=== PATIENT | female | born 1980 | race Caucasian/White ===

== ENCOUNTER 2017-01-25 13:15 | Inpatient (IN) ==
--- NOTE | 2017-01-25 11:20 | OB/GYN History & Physical ---
Date of Encounter: 01/25/17 Time of Encounter: 11:18 Assessment and Plan (1) 36 weeks gestation of Current visit: Yes Status: Acute NST performed in office today - Twin A reactive and positioned OA - Twin B nonreactive with BPP 6/8 positioned transverse Admit to labor and delivery for possible induction of labor vs. section - last meal at 0800 today NPO IV fluids Placed on TOCO Spinal or epidural anesthesia offered for pain PIH orders initiated for elevated blood pressure reading here 146/102 (2) Twin gestation in third trimester Current visit: Yes Status: Acute RNST x2 on 01/22/2017 Qualifiers: Multiple gestation type: unspecified Qualified Code(s): O30.003 - Twin , unspecified number of placenta and unspecified number of amniotic sacs, third trimester (3) Elevated blood pressure affecting in third trimester, antepartum Current visit: Yes Status: Acute elevated BP 146/102, denies symptoms of headache, visual changes, abdominal pain Brisk reflexes, no clonus PIH orders - Magnesium as needed pending protein to creatinine ratio (4) Non-reactive NST (non-stress test) Current visit: Yes Status: Acute NST today reveals nonreactive twin B with BPP 6/8 Twin B is positioned transverse Twin A is reactive and positioned OA History of Present Illness Chief complaint: Nonreactive NST, elevated blood pressure HPI: Ms. Pagan is a 36 year old female 36 weeks 6 days with twin gestation presents from the office for concerning nonreactive NST of twin B and possible induction of labor. She is a patient of OB Dr. Darby. Was in the office today for scheduled nonstress test which revealed reactive NST of twin A and nonreactive NST of twin B with BPP 6/8. Twin A is OA and twin B is transverse. RNST x2 on 01/22/2017. Estimated due date 02/16/2017 with planned induction 01/29. She is A positive blood type. GBS negative, Hep B nonreactive, Rubella positive, other serologies reviewed and are negative. Endorses good movement. Reports contractions that have been intermittent since Saturday without any regularity. Denies any headache, blurry vision, visual changes, shortness of breath, abdominal pain, vaginal bleeding, urinary symptoms, or water breaking. No complications to the prior to today. Former smoker prior to , quit 2009. Last meal or oral intake at 0800 today. Takes prenatals, folic acid supplementation, Vit D, and stool softeners. No known drug allergies. History of uterine polyps removal 04/2015. Denies any cardiac and pulmonary disorders. History of MS and not on medications for it at this time, spoke with anesthesia prior to arrival here. Past Med Surg Social Fam HX - Past Medical History Attestation: Yes The following information was validated with the patient. Source: patient - Family History Mother Name: juanito roberson Age: 66 Family Member Ethnicity: Non- Living Status: Still Living Hx Family Cardiac Disorders: No Hx Family Respiratory Disorders: No Hx Family Cancer: No Hx Family GI Disorders: No Hx Family Genitourinary Disorders: No Hx Family Endocrine Disorder: No Hx Family Musculoskeletal Disorders: No Hx Family Neuromuscular Disorders: No Hx Family Neurologic Disorders: Yes (bletherum spasms) Hx Family HEENT Disorders: No Hx Family Autoimmune Disorders: No Hx Family Reproductive Disorders: No Hx Family Psychosocial Disorders: No Hx Family Medical Disorders: Yes (mother had breast ca) Obstetrical History - Pregnancies : 1 Para: 0 Term: 0 : 0 Ab's: 0 Livin Medications and Allergies Docusate [Colace] 100 mg PO BID 01/25/17 [History] Folic Acid 1 mg PO DAILY 01/25/17 [History] Yuk287/Iron Fumarate/FA/Dss [ 19 Tablet] 1 tab PO DAILY 01/25/17 [ History] Polyethylene Glycol 3350 [MiraLAX Powder Bulk 17.9 Oz] 1 scoop PO DAILY [History] Simethicone [Gas-X] 80 mg PO TID 01/25/17 [History] Allergies No Known Allergies Allergy (Verified 01/25/17 11:21) Review of System OB All systems PM: reviewed and no additional remarkable complaints except as stated Exam - Constitutional Constitutional: well developed, well nourished, no acute distress - HEENT HEENT: Normocephaly, Mucus Membranes Moist - Neck Neck exam: full ROM, normal inspection - Lungs Respiratory exam: CTAB - Cardiovascular Cardiovascular exam: RRR, +S1, +S2 - Abdomen Abdomen: Present: bowel sounds normal, gravid, non tender - Extremities Extremities exam: full ROM, normal capillary refill, normal inspection, warm, radial pulses palpable and symetrical Deep Tendon Reflex Grade: 3+ Normal But Brisk - Uterus Uterus exam: Present: normal size Results Result Diagrams: 01/25/17 11:50 01/25/17 11:50 All other labs normal.
[2017-01-25 12:09] LABS: Basophils % 0.5 %; Eosinophils % 0.6 %; Hematocrit 36.3 % (35.3-44.9); Hemoglobin 12.3 g/dL (11.5-15.4); Immature Granulocytes % 0.5 % (0-4); Lymphocytes % 14.7 %; Mean Corpuscular HGB Conc 33.9 g/dL (31.6-35.5); Mean Corpuscular Hemoglobin 32.2 pg (28.0-33.3); Mean Platelet Volume 12.4 fL (9.4-12.4); Monocytes # 0.6 K/mcL (0.0-1.3); Neutrophils # 4.8 K/mcL (1.6-8.9); Platelet Count 130 K/mcL (140-400); Red Blood Count 3.82 M/mcL (3.82-4.97); Red Cell Distribution Width 12.9 % (11.5-14.5); Segmented Neutrophils % 74.7 %
[2017-01-25 12:22] LABS: Alanine Aminotransferase 17 Units/L (0-55); Aspartate Amino Transferase 25 Units/L (5-34); BUN/Creatinine Ratio 11 (6-26); Blood Urea Nitrogen 7 mg/dL (7-20); Uric Acid 4.8 mg/dL (2.6-6.0); eGFR For African Americans > 60 (> 60); eGFR For Non-African Americans > 60 (> 60)
[2017-01-25 12:23] LABS: Lactate Dehydrogenase 286 Units/L (159-327)
[~2017-01-25 13:15] MED LIST: CeFAZolin Pre 2,000 MG/100 ML 2,000 MG/100 ML BAG IVPB ONE; Famotidine 20 MG/2 ML VIAL IVP ONE; Famotidine 20 MG/2 ML VIAL IVP PRN; Metoclopramide 10 MG/2 ML VIAL IVP ONE; Naloxone 0.4 MG/ML INJ IVP PRN; Ondansetron 4 MG/2 ML VIAL IVP PRN; Ringers Solution, Lactated 1,000 ML IVC ONE; Ringers Solution, Lactated 1,000 ML IVC SCH
[2017-01-25 13:51] LABS: Creatinine,Urine 39 mg/dL; Protein/Creatinine Ratio,Urine 0.18 mg/mg (0-0.20)
--- NOTE | 2017-01-25 14:36 | Anesthesia Evaluation PreOp ---
Date of Encounter: 01/25/17 Time of Encounter: 14:33 - Past History Planned Operation: csection Cardiac History: Denies any Significant Hx Pulmonary History: Denies Any Significant HX SAMPLE DISTRIBUTOR History: Denies Any Significant HX, Other (Multiple sclerosis) Other Medical History: GERD Anesthesia History: No Prior Anesthetic Complications, Past Anesthesia : Yes (36 weeks, ) Alcohol Use: none Drug use: none Medications and Allergies Docusate [Colace] 100 mg PO BID 01/25/17 [History] Folic Acid 1 mg PO DAILY 01/25/17 [History] [id number]/Iron Fumarate/FA/Dss [ 19 Tablet] 1 tab PO DAILY 01/25/17 [ History] Polyethylene Glycol 3350 [MiraLAX Powder Bulk 17.9 Oz] 1 scoop PO DAILY [History] Simethicone [Gas-X] 80 mg PO TID 01/25/17 [History] Allergies No Known Allergies Allergy (Verified 01/25/17 11:21) - Meds/Allergy Pre-op Review Medications Reviewed: Yes Allergies Reviewed: Yes Beta Blockers on Current Med List: No Anesthesia Results - Labs 01/25/17 11:50 01/25/17 11:50 Anesthesia Exam O2 Sat Height 1.7 m Height 1.7 m Weight 103.2 kg Weight 103.2 kg hr 60 bp 126/72 Height: 67 Weight: 103 NPO (# of Hours): 0800 breakfast - HEENT Pupil (Motor): Pupils equal Mallampati: II Teeth: Normal Oral Opening: Greater than 3 - SAMPLE DISTRIBUTOR LOC: Oriented (Diagnosed with MS in 2014, symptoms were dizziness and left sided weakness. The only symptom since that time was mild dizziness in August of 2016 that only last one hour.) SAMPLE DISTRIBUTOR Motor: Normal RUE, Normal LUE, Normal RLE, Normal LLE, Normal Face SAMPLE DISTRIBUTOR Sensory: Normal: RUE, LUE, RLE, LLE, Face - Cardiac Rhythm: Regular Murmur: None JVD: No Carotid Bruit: No - Pulmonary Breath Sounds: bilateral Clear Respiratory Effort: Symmetrical Anesthesia Assess/Plan ASA Score: 2 Modified [place] Scale for Level of Consciousness: Cooperative, oriented, and tranquil (p) Anesthetic Plan: Regional (Plan to attempt epidural anesthesia for csection d/t possible increased risk of MS exacerbation associated with spinal anesthesia. Patient wishes to proceed with spinal anesthetic if epidural fails. She understands the risks, including exacerbation of MS, after a lenghty explanation of risks and benefits associated with anesthetic types.) Autologous Blood: Yes Monitoring Plan: Standard Monitors Recovery Plan: PACU
--- NOTE | 2017-01-25 18:29 | Anesthesia Procedures ---
Date of Encounter: 01/25/17 Time of Encounter: 18:27 Procedures: Anesthesia - Epidural/Spinal Patient ID/Chart reviewed: Yes Patient examined: Yes OB Eval: Gestational age: 36 OB Eval: : 1 OB Eval: Hx Para: 0 Consent Obtained: Yes Supplemental Oxygen: None/Room Air Site Prep: Aseptic Technique, 0.5% Chlorhexidine/Alcohol Patient position: upright Local Anesthetic: Lidocaine 1% Amount of Local Anesthetic used: 3 Touhy Needle Gauge: 18 Touhy Needle Depth (cm): 6 Catheter Depth at Skin (cm): 12 Test Dose (1.5% Lido + Epi): Volume given (mls): 3 Test Dose Result: Negative Loading Dose Administered: Thru Touhy Needle Catheter Secured in Place: Tegaderm Interspace Used: L3-L4 Loss of Resistance (RYNE): Yes Blood: No CSF: No Paresthesia: Yes (transient parasthesia right side when inserting catheter.) Procedure: Strict asepsis, good ryne, fhr's unchanged
[2017-01-25] MEDS ORDERED: Chloroprocaine/PF 20 ML VIAL INFILT ONE (18:43)
[2017-01-25] MEDS ORDERED: Ringers Solution, Lactated 1,000 ML ONE (18:59)
[2017-01-25] MEDS ORDERED: *HR* Morphine Sulfate/PF 5 MG/10 ML AMPUL ONE (19:55)
[2017-01-25] MEDS ORDERED: Ondansetron 4 MG/2 ML VIAL ONE (20:07)
[2017-01-25] MEDS ORDERED: EPHEDrine 50 MG/ML VIAL ONE (20:08)
--- NOTE | 2017-01-25 20:20 | OB/GYN Procedure Note ---
Section - Date of procedure: 01/25/17 Preop diagnosis: other malpresentation, other (BPP 6/8 with decreased tone and inability to monitor twin B, Twin B transverse) Post-op diagnosis: other (Tight nuchal cord) Procedure: section, primary low transverse Surgeon: Wilfrido Darby Anesthesiologist: Andreas Colon Neon Sign Installer: Wallace Vasquez Anesthesia Type: Epidural section complications: none Disposition: PACU Specimens: Placenta - Infant (s) Infant A Delivery Date: 01/25/17 Delivery Time: 19:18 Presentation: vertex Gender: Female Viability: Viable Pounds: 6 Ounces: 8 Gram Weight: 2.95 kg at 1 minute: 7 at 5 minutes: 8 Shoulder Dystocia: not encountered B Infant Delivery Date: 01/25/17 Infant Delivery Time: 19:19 Presentation: transverse lie Gender: Female Viability: Viable Pounds: 6 Ounces: 0 at 1 minute: 8 at 5 minutes: 8 Placenta: spontaneous Cord: 3 umbilical vessels - Narrative Narrative: Patient's 36-year-old 1 now para 2 female at 36 weeks and 6 days seen in office today for routine antepartum testing. We were unable to monitor infant B. Biophysical profile was performed infant B had was with only one movement at 29 minutes of monitoring. did discuss with her nurse and decision was made that delivery was indicated. b was in transverse presentation. given difficulty in monitoring and transverse lie of b decision was made to proceed with primary section patient was aware operative risks and signed appropriate consent description of procedure: patient was taken operating room where epidural anesthesia was administered. Bladder was drained of clear urine with ortiz catheter. Once adequate anesthesia was determined scope was used to make Pfannenstiel skin incision. This incision was extended down to the rectus fascia which was incised in midline. Fascial incision was extended bilaterally. Plane was developed and rectus muscle rectus fascia superiorly and distally. Peritoneum was entered bluntly and bladder blade was placed and bladder flap was developed and lower uterine segment scalp was used to make a low transverse uterine incision was extended bluntly bilaterally. Membranes were ruptured of clear fluid and infant a was delivered from vertex presentation. Of note tight nuchal cord was noted which was reduced during delivery. Oropharynx nasopharynx were suctioned was handed nurse personnel who were in attendance. Membranes were then ruptured on second which was in breech presentation. Infant was delivered from breech presentation cord was around the right arm. Oropharynx and nasopharynx were suctioned of clear fluid. Infant was handed nurse personnel who were in attendance. Both placentas were delivered manually and uterine cavity was massaged free of residual tissue. Uterus was closed by Vicryl running lock stitch. Irrigation was performed hemostasis was ensured. Fascia was closed by 0 Vicryl running manner. Irrigation was performed hemostasis was assured. Skin edges reapproximated with 4-0 Vicryl. All sponge and counts are correct patient was taken to recovery in good condition.
[2017-01-25] MEDS ORDERED: *HR* Promethazine 25 MG/ML VIAL IVP PRN (20:21)
[2017-01-25] MEDS ORDERED: Acetaminophen IV 1,000 MG/100 ML INFUS..BTL IVPB ONE (20:22)
[2017-01-25] MEDS ORDERED: *HR* HYDROmorphone (PF) 1 MG/ML SYRINGE ONE (20:24)
[2017-01-25] MEDS ORDERED: Oxytocin 20 units/ LR 1000 mL 20 UNIT/1,000 ML BAG IVC ONE (20:25)
[2017-01-25] MEDS ORDERED: *HR* Promethazine 25 MG/ML VIAL ONE (20:27)
[2017-01-25] MEDS: *HR* HYDROmorphone (PF) 1 MG/ML SYRINGE IVP PRN ×2 (20:35→20:44)
--- NOTE | 2017-01-25 21:47 | Anesthesia Evaluation Post Op ---
Date of Encounter: 01/25/17 Time of Encounter: 21:46 - Vital Signs Vital Signs: 116/76 hr 78 rr 18 spo2 99 - Lungs Lungs: Clear Ascult./Percussion - Airway Airway: Non-obstructed - Cardiovascular Regular Rate - Mental Status Mental Status: Alert & Oriented, Answers Appropriately - Pain Pain Scale: 2 - Nausea Vomiting Nausea Vomiting: Not Present - Hydration Hydration: NPO, Ponce catheter - Discharge PostOp Status: Transfer Patient to floor
[2017-01-25] MEDS ORDERED: Rho Immune Globulin 1,500 UNIT SYRINGE IM ONE (22:35)
[2017-01-25] MEDS ORDERED: Sennosides 8.6 MG TABLET PO PRN (22:35)
[2017-01-25] MEDS ORDERED: Metoclopramide 10 MG/2 ML VIAL IVP PRN (22:35)
[2017-01-25] MEDS ORDERED: Ondansetron 4 MG/2 ML VIAL IVP PRN (22:35)
[2017-01-26 03:00] LABS: Basophils % 0.3 %; Hematocrit 30.3 % (35.3-44.9); Immature Granulocytes % 1.1 % (0-4); Immature Platelets 15.3 % (1.1-6.1); Lymphocytes % 9.7 %; Mean Corpuscular Hemoglobin 32.7 pg (28.0-33.3); Mean Corpuscular Volume 96.2 fL (83.0-100.0); Mean Platelet Volume 11.7 fL (9.4-12.4); Monocytes # 0.6 K/mcL (0.0-1.3); Monocytes % 5.8 %; Neutrophils # 8.7 K/mcL (1.6-8.9); Platelet Count 116 K/mcL (140-400); Red Blood Count 3.15 M/mcL (3.82-4.97); Segmented Neutrophils % 83.1 %
[2017-01-26 03:13] LABS: Hemoglobin 10.3 g/dL (11.5-15.4)
[2017-01-26] MEDS ORDERED: Ringers Solution, Lactated 1,000 ML ONE (03:21)
--- NOTE | 2017-01-26 07:55 | OB/GYN Progress Note ---
Date of Encounter: 01/26/17 Time of Encounter: 07:53 - Assessment and Plan (1) Status post delivery Current Visit: Yes Status: Acute Continued routine postop/ care advance diet as tolerated discontinue ortiz possible discharge home tomorrow (2) Breast feeding status of mother Current Visit: Yes Status: Acute Continue support as needed Subjective - Subjective Principal diagnosis: section Interval history: Patient seen and examined. Patient is sitting up, currently breast-feeding Ezequiel (twin B). No issues with , good latching. Reports episode of dyspepsia and burping but denies any nausea at this time. Requesting regular diet, tolerated clear liquid diet yesterday. Denies passing flatus or bowel movement. Good urine output, ortiz remains in place 800 UOP. Reports good pain control. Patient reports: appetite normal, pain well controlled, ambulating normally : doing well, nursing well Objective - Vital Signs Latest vital signs: Vital Signs Temp Pulse Resp BP Pulse Ox 01/26/17 03:37 98.1 F 79 16 120/79 97 01/26/17 01:30 98.1 F 76 16 120/72 98 01/26/17 00:35 97.6 F 82 16 120/78 98 01/25/17 23:30 97.6 F 65 18 120/78 97 01/25/17 23:00 98.5 F 96 20 129/73 96 01/25/17 22:30 98.5 F 85 14 130/84 97 Intake and Output 01/25/17 01/25/17 01/26/17 15:59 23:59 07:59 Intake Total 1500 / 1500 Output Total 800 / 800 Balance 700 / 700 Intake: Oral 500 / 500 Other 1000 / 1000 Output: Catheter 800 / 800 Other: Weight 103.2 kg 95.453 kg - Exam Lungs: bilateral: normal Chest: Normal S1, Normal S2 Extremities: Present: normal, edema (mild). Absent: tenderness Abdomen: Present: normal appearance, soft, other (Active bowel sounds) Incision: Present: normal, dry, dressed Uterus: Present: normal, firm Fundal Height: 2 - Labs Labs: Laboratory Results - last 24 hr 01/25/17 01/25/17 01/25/17 11:50 11:50 13:30 WBC 6.5 RBC 3.82 Hgb 12.3 Hct 36.3 MCV 95.0 MCH 32.2 MCHC 33.9 RDW 12.9 Plt Count 130 L MPV 12.4 Immature Gran % 0.5 Seg Neutrophils % 74.7 Lymphocytes % 14.7 Monocytes % 9.0 Eosinophils % 0.6 Basophils % 0.5 Neutrophils # 4.8 Lymphocytes # 1.0 Monocytes # 0.6 Eosinophils # 0.0 Basophils # 0.0 Immature Plt Fraction BUN 7 Creatinine 0.66 Est GFR ( Amer) > 60 Est GFR (Non-Af Amer) > 60 BUN/Creatinine Ratio 11 Uric Acid 4.8 AST 25 ALT 17 Lactate Dehydrogenase 286 Urine Creatinine 39 Protein/Creatinin Ratio 0.18 Urine Total Protein < 7 01/26/17 02:35 WBC 10.5 D RBC 3.15 L Hgb 10.3 L D Hct 30.3 L MCV 96.2 MCH 32.7 MCHC 34.0 RDW 13.0 Plt Count 116 L MPV 11.7 Immature Gran % 1.1 Seg Neutrophils % 83.1 Lymphocytes % 9.7 Monocytes % 5.8 Eosinophils % 0.0 Basophils % 0.3 Neutrophils # 8.7 Lymphocytes # 1.0 Monocytes # 0.6 Eosinophils # 0.0 Basophils # 0.0 Immature Plt Fraction 15.3 H BUN Creatinine Est GFR ( Amer) Est GFR (Non-Af Amer) BUN/Creatinine Ratio Uric Acid AST ALT Lactate Dehydrogenase Urine Creatinine Protein/Creatinin Ratio Urine Total Protein
[2017-01-26] MEDS: Prenatal Vit/FA 1 EACH TABLET PO SCH (08:09)
[2017-01-26] MEDS: Ibuprofen 600 MG TABLET PO PRN ×3 (10:03→23:43)
[2017-01-26] MEDS: Simethicone 80 MG TAB.CHEW PO PRN (18:13)
[2017-01-26] MEDS: *HR* OxyCODONE/APAP 5/325 TABLET PO PRN ×2 (19:00→23:43)
[2017-01-27] MEDS: *HR* OxyCODONE/APAP 5/325 TABLET PO PRN ×4 (03:19→19:32)
[2017-01-27] MEDS: Prenatal Vit/FA 1 EACH TABLET PO SCH (07:37)
[2017-01-27] MEDS: Simethicone 80 MG TAB.CHEW PO PRN ×3 (07:37→20:10)
--- NOTE | 2017-01-27 08:46 | OB/GYN Progress Note ---
Date of Encounter: 01/27/17 Time of Encounter: 08:44 - Assessment and Plan (1) Status post delivery Current Visit: Yes Status: Acute patient doing very well, had a little bloating that has subsided, ambulation encouraged, infants doing very well, wants to go home tomorrow, cont current inpt care Subjective - Subjective Patient reports: appetite normal, voiding normally, pain well controlled, ambulating normally [place]: doing well Objective - Vital Signs Latest vital signs: Vital Signs Temp Pulse Resp BP Pulse Ox 01/26/17 20:45 97.8 F 88 16 106/67 97 01/26/17 15:35 98.3 F 86 16 115/78 01/26/17 13:00 97.8 F 87 16 120/86 Intake and Output 01/26/17 01/27/17 01/27/17 23:59 07:59 15:59 Intake Total 1520 / 1520 Output Total 2150 / 2150 1350 / 1350 Balance -630 / -630 -1350 / -1350 Intake: Oral 1520 / 1520 Output: Urine 2150 / 2150 1350 / 1350 Other: Meal Dinner Percent of Meal Consumed 100% - Exam Lungs: bilateral: normal Chest: Normal S1, Normal S2 Extremities: Present: normal Abdomen: Present: normal appearance, soft Incision: Present: dry, intact Uterus: Present: firm
[2017-01-27] MEDS: Ibuprofen 600 MG TABLET PO PRN ×2 (11:33→17:24)
[2017-01-28] MEDS: *HR* OxyCODONE/APAP 5/325 TABLET PO PRN ×2 (01:43→08:55)
[2017-01-28] MEDS: Ibuprofen 600 MG TABLET PO PRN ×2 (05:59→13:01)
[2017-01-28 07:32] VITALS: BP 130/82
--- NOTE | 2017-01-28 07:54 | Discharge Summary ---
Date of Encounter: 01/28/17 Time of Encounter: 07:49 - Discharge Diagnosis (1) Breast feeding status of mother Priority: Secondary Status: Acute Comments: Continue support prn (2) Status post delivery Priority: Primary Status: Acute Comments: Continue routine postop/ care discharge home today follow up with Dr. Darby in 2 weeks (3) Twin gestation in third trimester Priority: Secondary Status: Acute Qualifiers: Multiple gestation type: dichorionic and diamniotic Qualified Code(s): O30.043 - Twin , dichorionic/diamniotic, third trimester - Discharge Medications Prescriptions: OxyCODONE/APAP 5/325 [Percocet 5/325 MG] 1 each PO Q4HR PRN #30 tablet PRN Reason: Moderate pain 4-6 Ibuprofen [Motrin] 600 mg PO Q6HR PRN #60 tablet PRN Reason: Cramping Breast Pump [BREAST PUMP] 1 each .ROUTE AD #1 each Home Medications: Gya522/Iron Fumarate/FA/Dss [ 19 Tablet] 1 tab PO DAILY 01/25/17 [ History] Breast Pump [BREAST PUMP] 1 each .ROUTE AD #1 each 01/28/17 [Rx] Ibuprofen [Motrin] 600 mg PO Q6HR PRN #60 tablet 01/28/17 [Rx] OxyCODONE/APAP 5/325 [Percocet 5/325 MG] 1 each PO Q4HR PRN #30 tablet 01/28/17 [Rx] Vit/FA 1 each PO DAILY tablet 01/28/17 [Rx] Allergies/Adverse Reactions: Allergies No Known Allergies Allergy (Verified 01/25/17 11:21) Data Procedures and tests throughout hospitalization: Laboratory Tests 01/25/17 01/25/17 01/25/17 11:50 11:50 13:30 WBC 6.5 RBC 3.82 Hgb 12.3 Hct 36.3 MCV 95.0 MCH 32.2 MCHC 33.9 RDW 12.9 Plt Count 130 L MPV 12.4 Immature Gran % 0.5 Seg Neutrophils % 74.7 Lymphocytes % 14.7 Monocytes % 9.0 Eosinophils % 0.6 Basophils % 0.5 Neutrophils # 4.8 Lymphocytes # 1.0 Monocytes # 0.6 Eosinophils # 0.0 Basophils # 0.0 Immature Plt Fraction BUN 7 Creatinine 0.66 Est GFR ( Amer) > 60 Est GFR (Non-Af Amer) > 60 BUN/Creatinine Ratio 11 Uric Acid 4.8 AST 25 ALT 17 Lactate Dehydrogenase 286 Urine Creatinine 39 Protein/Creatinin Ratio 0.18 Urine Total Protein < 7 01/26/17 02:35 WBC 10.5 D RBC 3.15 L Hgb 10.3 L D Hct 30.3 L MCV 96.2 MCH 32.7 MCHC 34.0 RDW 13.0 Plt Count 116 L MPV 11.7 Immature Gran % 1.1 Seg Neutrophils % 83.1 Lymphocytes % 9.7 Monocytes % 5.8 Eosinophils % 0.0 Basophils % 0.3 Neutrophils # 8.7 Lymphocytes # 1.0 Monocytes # 0.6 Eosinophils # 0.0 Basophils # 0.0 Immature Plt Fraction 15.3 H BUN Creatinine Est GFR ( Amer) Est GFR (Non-Af Amer) BUN/Creatinine Ratio Uric Acid AST ALT Lactate Dehydrogenase Urine Creatinine Protein/Creatinin Ratio Urine Total Protein Date of admission: 01/25/17 13:15 Primary care physician: Kesha Perdomo Discharging clinician: Mary Torres Anticipated date of discharge: 01/28/17 - Patient Status Disposition: Home, Self-Care Condition: Good Functional capacity at discharge: independent ambulation - Discharge Instructions Follow Up With: Kesha Perdomo MD [Primary Care Provider] - Wilfrido Darby MD [Partnered Physician] - - Diet and Activity Activity: increase activity as tolerated Diet: regular diet Hospital Course Reason for admission: section Delivery: section Episiotomy: none Laceration: none Other procedures: none complications: none Discharge diagnosis: delivery [place] baby: twins (Twins) Hospital course: [facility] report reviewed prior to discharge per ABRAHAM Shaver Time Attestation: Total time spent providing and/or coordinating discharge services: Time Spent: Less than 30 minutes - VTE Reasons for not Prescribing Prophylaxis: Treatment not Indicated - Low risk for VTE Documentation of Mechanical Device: Intermittent pneumatic compression device Exam - Constitutional Vitals: Temp Pulse Resp BP Pulse Ox 98.3 F 80 16 130/82 98 01/28/17 07:31 01/28/17 07:31 01/28/17 07:31 01/28/17 07:31 01/27/17 19:30 General appearance IM: A&O X 3, pleasant, answers questions appropriately - Respiratory Respiratory exam: Present: CTAB - Cardiovascular Cardiovascular exam IM: Present: RRR, +S1, +S2 - GI/Abdominal GI/Abdominal exam IM: normal bowel sounds Incision: normal, dry, intact, other (Rash noted on abdomen above incision that extends 2 fingers above the umbilicus Appears to be a reaction to c/s prep. Will try Benadryl and hydrocortisone cream prn.) - Uterine Tone: Firm Uterus Position: 2 Fingers Below Umbilicus, Midline - Extremities Exam Extremities exam IM: Present: full ROM, normal capillary refill, normal inspection - Neurological Exam Neurological exam: alert, oriented X3, reflexes normal
[2017-01-28] MEDS: Prenatal Vit/FA 1 EACH TABLET PO SCH (08:55)
[2017-01-28] MEDS: Simethicone 80 MG TAB.CHEW PO PRN (08:55)
== END 2017-01-28 13:30 | disposition home or self-care (01) | DRG 765 ==
LOC: 1NENULAB → 1NENUOBS 22:34
PROVIDERS: ADMIT Student in an Organized Health Care Education/Training Program; ATTEND Student in an Organized Health Care Education/Training Program